=== PATIENT | female | born 1960 | race Caucasian/White ===

== ENCOUNTER → 2017-04-12 | Outpatient (CLI) | payer OTHER ==
[~2017-04-12] MED LIST: COZAAR100 MG PO; CPAP INH; VITAMIN D-32000 UNI1 PO; ZOLOFT100 MG PO
== END | disposition disaster alternative care site (69) ==
LOC: GBCOE 03-29 08:00
DX: Z12.31 Encounter for screening mammogram for malignant neoplasm of breast (principal)
CPT/HCPCS: G0202